=== PATIENT | female | born 1975 | race Caucasian/White ===

== ENCOUNTER → 2022-09-03 | Day surgery (SDC) | payer BC ==
[~2022-09-03] MED LIST: ACETAMINOPHEN 1000 MG/100 ML 100 ML IV ONE; CEFAZOLIN SODIUM 2 GM ONE; DEXAMETHASONE SOD PHOS INJ 4 MG/ML SDV ONE; FENTANYL CITRATE/PF 100MCG/2 ML INJ ONE; FLOMAX0.4 MG PO; KETOROLAC30 MG/1 M2 PO; LACTATED RINGER'S 1,000 ML ONE; LIDOCAINE HCL 2% LOCAL INJ 5 ML SDV VIAL INJ ONE; ONDANSETRON HCL INJ 2MG/ML 2ML 2 MG/ML VIAL ONE; POVIDONE IODINE 0.05% 0.05 % ML PO ONE; PROPOFOL IV EMULSION 10 MG/ML 20 ML VIAL ONE; SEVOFLURANE INHAL SOLN 250 ML PEN BTL ONE; VESICARE5 MG PO
[2022-09-03 13:15] VITALS: BP 137/89; PULSE 89; RESP 18; O2SAT 97
== END | disposition home or self-care (01) ==
LOC: OR 08:56
PROVIDERS: ATTEND Urology
DX: N20.0 Calculus of kidney (principal); K21.9 Gastro-esophageal reflux disease without esophagitis; Z96.0 Presence of urogenital implants
CPT/HCPCS: 50590; 81025; J0131; J1100; J2001; J2405; J2704; J7121